=== PATIENT | male | born 1970 | race Caucasian/White ===

== ENCOUNTER → 2016-12-04 | Outpatient (CLI) | payer MEDICAID ==
--- NOTE | 2016-12-04 12:53 | DX ---
Chest, Two Views 1221 hours History: Bronchitis. Comparison: November 22, 2016 Findings: Cardiac silhouette is within normal range. Poor respiratory phase. No pneumonia, congesti ve heart failure, pleural effusion, or pneumothorax. Impression: 1. Poor Respiratory phase without definite focal pneumonia. 2. Consider followup with improved inspiration if clinically indicated.
== END ==
LOC: FIMAGING 11:59
PROVIDERS: ATTEND Family Medicine
DX: R05 Cough (principal); Z87.09 Personal history of other diseases of the respiratory system

== ENCOUNTER 2017-05-20 14:11 | Emergency (ER) | payer MEDICAID ==
[2017-05-20 14:23] VITALS: O2SAT 95
--- NOTE | 2017-05-20 16:26 | EDPHY ---
H & P Time Seen by Provider: 05/20/17 16:05 HPI/ROS: CHIEF COMPLAINT: right foot complaint HISTORY OF PRESENT ILLNESS: 46-year-old male presents emergency department complaining of right 4th toe pain. Patient was seen at [facility] and referred to a master cook. Patient reports he called the master cook and they could not see him for 1 month. He is concerned he should not wait this long. Patient reports a wound to right 4th toe x5 weeks, he was seen [facility] and told was a callus, they started shaving the callus and realized it was deeper than they realized so they referred him to master cook. The patient has taking 10 days worth of doxycycline. He denies fevers or chills, no drainage, no numbness or tingling in his foot. The patient reports he is prediabetic. He reports pain in this toe. Smoking Status: Current some day smoker Physical Exam: GEN: Awake, alert, oriented, no acute distress RESP: nl resp effort MSK: Full active flexion and extension of all toes on right foot, sensation intact to light touch, cap refill less than 2 seconds SKIN: 1 cm x 1 cm callus/ulcer to right lateral 4th toe between 4th and 5th toes. No drainage, no surrounding erythema. No swelling to toe Constitutional: Initial Vital Signs Temperature (C) 36.9 C 05/20/17 14:20 Heart Rate 90 05/20/17 14:20 Respiratory Rate 17 05/20/17 14:20 Blood Pressure 116/78 05/20/17 14:20 O2 Sat (%) 95 05/20/17 14:20 O2 Delivery Mode Room Air Allergies/Adverse Reactions: sulfamethoxazole [From ] Allergy (Verified 05/20/17 14:18) trimethoprim [From ] Allergy (Verified 05/20/17 14:18) Home Medications: Medication Instructions Recorded Doxycycline Hyclate 05/20/17 Hydrocodone/APAP 5/325 [[place] 1 tab PO Q4H PRN #7 tab 05/20/17 5/325] Lisinopril 05/20/17 MDM/Departure - MDM ED Course/Re-evaluation: 46-year-old nontoxic-appearing male with right foot ulcer presents requesting to see a master cook. Patient was referred to a master cook and they cannot see him for 1 month. Patient is foot appears stable, no signs of cellulitis or osteomyelitis. The patient has no swelling or erythema to this toe, no drainage , no fevers. Patient reports he is prediabetic. I have spoken with case management who will attempt to get him an appointment with a master cook sooner than 1 month. The patient is given strict return precautions for any worsening symptoms, new symptoms or concerns. - Depart Disposition: Home, Routine, Self-Care Clinical Impression: Toe ulcer, right Qualifiers: Non-pressure ulcer stage: unspecified non-pressure ulcer stage Qualified Code(s ): L97.519 - Non-pressure chronic ulcer of other part of right foot with unspecified severity Condition: Good Instructions: Diabetic Foot Ulcers (ED) Additional Instructions: Follow up with the master cook as discussed. Return to the emergency department for any fevers, drainage, redness to your toe, worsening symptoms or concerns. Take 600 mg of ibuprofen every 8 hours with food for 3-5 days. You can also take 650 mg of Tylenol every 8 hours. Take [place] as needed for severe pain. [place] does have Tylenol in it, do not take more than 3000 mg of Tylenol in 24 hours. You have an appointment at [facility] ([phone]) with Dr. Amelia Funes on 05/22/17 at 11:45a.m. Please arrive at 11:30am. They are located at [address] [place] [address]. Prescriptions: Hydrocodone/APAP 5/325 [[place] 5/325] 1 tab PO Q4H PRN #7 tab PRN Reason: Pain, Moderate Referrals: Ro Ornelas DO [Primary Care Provider] - As per Instructions
[2017-05-20 16:55] VITALS: BP 118/76; PULSE 81; RESP 16; TEMP 98.2
== END 2017-05-20 16:55 | disposition home or self-care (01) ==
DX: L97.519 Non-pressure chronic ulcer of other part of right foot with unspecified severity (principal); F17.200 Nicotine dependence, unspecified, uncomplicated

== ENCOUNTER → 2017-05-22 | Outpatient (CLI) | payer MEDICAID | LOC: BMCIMAGING 12:20 | PROVIDERS: ATTEND Podiatrist Foot & Ankle Surgery | DX: L97.519 Non-pressure chronic ulcer of other part of right foot with unspecified severity (principal) ==

== ENCOUNTER 2017-07-13 10:16 | Emergency (ER) | payer MEDICAID ==
[2017-07-13 10:22] VITALS: RESP 16; TEMP 98.6
--- NOTE | 2017-07-13 10:28 | EDPHY ---
H & P Time Seen by Provider: 07/13/17 10:18 HPI/ROS: CHIEF COMPLAINT: Left 4th and 5th toe pain post dropping a plate HISTORY OF PRESENT ILLNESS: 47-year-old male arrives via ambulance complaining of left 4th and 5th toe pain which occurred yesterday while he was at work and a heavy platter dropped onto the same area. He is able to bear weight albeit with pain. Positive ecchymotic discoloration. No paresthesia. Intact skin. No other injury. REVIEW OF SYSTEMS: A ten point review of systems was performed and is negative with the exception of the items mentioned in the HPI PAST MEDICAL & SURGICAL HISTORY: No pertinent medical or surgical history SOCIAL HISTORY: works at [employer]! PHYSICAL EXAM (Prior to examination, patient consented to physical exam, hands were washed and my usual and customary physical exam procedures followed) 1) GENERAL: Well-developed, well-nourished, alert and oriented. Appears to be in no acute distress. 2) HEAD: Normocephalic 3) HEENT: . Sclera anicteric. 4) NECK: no meningeal signs. 5) LUNGS: Breathing comfortably 6) HEART: No cyanotic discoloration 7) ABDOMEN: No guarding,, 8) MUSCULOSKELETAL: Left foot: Tender to palpation 4th and 5th toes with mild ecchymosis noted, no subungual hematoma, no shortening, no malrotation, remainder foot nontender. Soft compartments. 9) BACK: no visual abnormality. 10) SKIN: no laceration no rash . DIFFERENTIAL DIAGNOSIS: In no particular order including but not limited to fracture, sprain, dislocation Procedure: Splint A marixa tape and postop shoe splint was applied by ER collection systems technician. After application of the splint I returned and re-examined the patient. The splint was adequately immobilizing the joint and distal to the splint the patient's circulation and sensation were intact. Patient shows no signs of compartment syndrome. Was given orthopedic precautions. Smoking Status: Current some day smoker Constitutional: Initial Vital Signs Temperature (C) 37.0 C 07/13/17 10:20 Heart Rate 96 07/13/17 10:20 Respiratory Rate 16 07/13/17 10:20 Blood Pressure 141/87 H 07/13/17 10:20 O2 Sat (%) 96 07/13/17 10:20 O2 Delivery Mode Room Air Allergies/Adverse Reactions: sulfamethoxazole [From Septra] Allergy (Verified 05/20/17 14:18) trimethoprim [From Septra] Allergy (Verified 05/20/17 14:18) Home Medications: Medication Instructions Recorded Doxycycline Hyclate 05/20/17 Hydrocodone/APAP 5/325 [[place] 1 tab PO Q4H PRN #7 tab 05/20/17 5/325] Lisinopril 05/20/17 Ibuprofen [Motrin (*)] 600 mg PO Q6 #15 tab 07/13/17 MDM/Departure - [facility] ED Course/Re-evaluation: Re-evaluation with serial exams. Discussed his negative imaging results. Informed that occult fracture not ruled out. Recommend splinting, elevation. Recommend podiatry follow-up. Given ibuprofen NSAID precautions. - Depart Disposition: Home, Routine, Self-Care Clinical Impression: Toe pain, left Condition: Good Instructions: Crush Injury (ED) Additional Instructions: Return to the ER immediately if you experience discoloration, have worsening pain, numbness, tingling, or any other symptoms that concern you. If you received x-rays in the emergency department today, be advised, that ligamentous , tendon, muscular, and other non-bony injury cannot be fully ruled out. Try to keep your affected extremity elevated above the level of your chest, and keep cold packs on the affected area, for the next 48 hours. Prescriptions: Ibuprofen [Motrin (*)] 600 mg PO Q6 #15 tab Referrals: Jean Quezada DPM [Doctor of Podiatric Medicine] - 2-3 days, call for appt.
[2017-07-13] MEDS ORDERED: IBUPROFEN 200 MG TAB PO ONE (10:46)
[2017-07-13 11:17] VITALS: BP 135/78; PULSE 80; O2SAT 95
== END 2017-07-13 11:15 | disposition home or self-care (01) ==
LOC: EDUNIT#
DX: S99.922A Unspecified injury of left foot, initial encounter (principal); F17.200 Nicotine dependence, unspecified, uncomplicated; W20.8XXA Other cause of strike by thrown, projected or falling object, initial encounter; Y92.89 Other specified places as the place of occurrence of the external cause; Y99.0 Civilian activity done for income or pay; Y93.89 Activity, other specified
CPT/HCPCS: L3260

== ENCOUNTER 2017-09-07 07:47 | Emergency (ER) | payer MEDICAID ==
[2017-09-07 07:53] VITALS: BP 155/105; PULSE 89; RESP 16; TEMP 98.6; O2SAT 96
--- NOTE | 2017-09-07 07:54 | EDPHY ---
HPI/HX/ROS/PE/MDM Narrative: CHIEF COMPLAINT: HPI: The patient is a 47 y/o male complaining of REVIEW OF SYSTEMS: Aside from elements discussed in the HPI, a comprehensive 10-point review of systems was reviewed and is negative. PMH: Diabetes mellitus, hepatitis C, ADHD, bipolar, anxiety SOCIAL HISTORY: Lives in [place], single, works at a [employer] PHYSICAL EXAM: General:Patient is alert, in no acute distress. ENT:Eyes are normal to inspection. ENT inspection normal. Neck: Normal inspection. Full range of motion. Respiratory:No respiratory distress. Breath sounds normal bilaterally. Cardiovascular: Regular rate and rhythm. Strong peripheral pulses. Normal cap refill. Abdomen:The abdomen is nontender to palpation. There are no peritoneal signs. There are normal bowel sounds. Back: Normal to inspection. No tenderness to palpation. Skin: Normal color. No rash. Warm and dry. Extremities: Normal appearance. Full range of motion. Neuro: Oriented x3. Normal motor function. Normal sensory function. Portions of this note were transcribed by an ED scribe. I personally performed the history, physical exam, and medical decision making; and confirm the accuracy of the information in the transcribed note. General Initial Vital Signs: Initial Vital Signs Temperature (C) 37 C 09/07/17 07:51 Heart Rate 89 09/07/17 07:51 Respiratory Rate 16 09/07/17 07:51 Blood Pressure 155/105 H 09/07/17 07:51 O2 Sat (%) 96 09/07/17 07:51 O2 Delivery Mode Room Air Allergies/Adverse Reactions: sulfamethoxazole [From ] Allergy (Verified 09/07/17 07:50) trimethoprim [From Augra] Allergy (Verified 09/07/17 07:50) Home Medications: Medication Instructions Recorded Lisinopril 05/20/17 Lipitor 09/07/17 Departure - Departure Referrals: Ro Ornelas DO [Primary Care Provider] - As per Instructions Report Scribed for: Nima Pro Report Scribed by: Lacie Chakraborty Date of Report: 09/07/17 Time of Report: 07:53
--- NOTE | 2017-09-07 08:14 | EDPHY ---
H & P Stated Complaint: ? inf in 4th digit of 5 foot Time Seen by Provider: 09/07/17 08:11 HPI/ROS: HPI: This is a 47-year-old male who presents with Chief Complaint: Concerns for right 4th toe infection Location: Webspace between right 4th and 5th toes Quality: Concern for infection Duration: 1 week Signs and Symptoms: No redness, no warmth, no drainage, no decreased range of motion, no paresthesias, no swelling, no injury Timing: gradual onset Severity:mild Context: Patient has a history of prediabetes (dx type 2 DM while in skilled nursing 2 years ago but BS are now diet controlled), anxiety, PTSD who presents with concerns of recurrent of infection between the webspace of his right 4th and 5th toes. He denies any redness/warmth/drainage/paresthesias. There has been no injury or trauma. He was seen last year and this ER as well as followed [facility] for similar complaint. Chart review shows patient did not have an infection but callus that was later shaved off by Podiatry with local wound care. Modifying Factors: None Comment: ROS: see HPI Constitutional: No fever, no chills, no weight loss Eyes: No blurred vision Respiratory: No shortness of breath, no cough Cardiovascular: No chest pain Gastrointestinal: No nausea, no vomiting, no diarrhea Genitourinary: No dysuria Extremities: No myalgias Neurologic: No weakness, no numbness Skin: No rashes Hematologic: No bruising, no bleeding CONSTITUTIONAL: Extremely well-appearing adult white male, pressured speech, awake and alert, no obvious distress HEENT: Atraumatic and normocephalic, PERRL, EOMI. Tympanic membranes clear. Oropharynx clear, no exudate and moist pink mucosa. Airway patent. No lymphadenopathy. No meningismus. Cardiovascular: Normal S1/S2, regular rate, regular rhythm, without murmur rub or gallop. PULMONARY/CHEST: Symmetrical and nontender. Clear to auscultation bilaterally. Good air movement. No accessory muscle usage. ABDOMEN: Soft, nondistended, nontender, no rebound, no guarding, no peritoneal signs, no masses or organomegaly. No CVAT. EXTREMITIES: 2/2 pulses, web pace between right 4th and 5th digits; no erythema /warmth/drainage/maceration. no callus formation. light touch sensation intact. no deformities, no clubbing, no cyanosis or edema. NEUROLOGICAL: no focal neuro deficits. GCS 15. SKIN: Warm and dry, no erythema. no rash. Good capillary refill. Source: Patient Exam Limitations: No limitations - Personal History Current Tetanus/Diphtheria Vaccine: Yes - Medical/Surgical History Hx Asthma: No Hx Chronic Respiratory Disease: No Hx Diabetes: Yes Hx Cardiac Disease: No Hx Renal Disease: No Hx Cirrhosis: No Hx Alcoholism: No Hx HIV/AIDS: No Hx Splenectomy or Spleen Trauma: No Other PMH: ADHD, DM, Hep C, HTN, HLD. bipolar, anxiety. Surgical Hx: denies. Social Hx: unemployed, hx incarceration - Social History Smoking Status: Current some day smoker Constitutional: Initial Vital Signs Temperature (C) 37 C 09/07/17 07:51 Heart Rate 89 09/07/17 07:51 Respiratory Rate 16 09/07/17 07:51 Blood Pressure 155/105 H 09/07/17 07:51 O2 Sat (%) 96 09/07/17 07:51 O2 Delivery Mode Room Air Allergies/Adverse Reactions: sulfamethoxazole [From Augra] Allergy (Verified 09/07/17 07:50) trimethoprim [From Augra] Allergy (Verified 09/07/17 07:50) Home Medications: Medication Instructions Recorded Lisinopril 05/20/17 Lipitor 09/07/17 Tolnaftate [Tinactin Powder (*)] 1 an TP BID #1 btl 09/07/17 Medical Decision Making ED Course/Re-evaluation: right foot xray ordered [id number] Foot x-ray reviewed via PACs and shows no soft tissue swelling/fracture/ dislocation No signs of neurovascular compromise/tenting of skin/compartment syndrome/ extremities and joints examined above and below area of concern and are neurovascularly intact/cellulitis/abscess. Differential Diagnosis: Differential diagnosis includes cellulitis, osteomyelitis, callus formation, fracture, inflammation, candidal infection. Departure - Departure Disposition: Home, Routine, Self-Care Clinical Impression: Observation and evaluation for suspected conditions not found, Pre-diabetes Condition: Good Instructions: Foot Care for People with Diabetes (ED), Diabetic Peripheral Neuropathy (ED), Prediabetes (ED), Diabetes and Your Skin (ED) Additional Instructions: Today, you do not show signs of a bacterial skin infection, candidal infection or abscess formation. Inspect and wash with mild soap your feet and toes daily. Keep your feet moisturized with lotion but do not place lotion between her toes. Wear shoes that probably fit. Monitor for signs and symptoms of tinea pedis; if these occur use Tinactin powder twice daily p.r.n.. Follow-up with Podiatry in the next 1-2 weeks for re-evaluation. The x-rays obtained in the emergency department today demonstrate no evidence of an obvious fracture. Referrals: Ro Ornelas DO [Primary Care Provider] - As per Instructions Noah Guerrero DPM [Doctor of Podiatric Medicine] - As per Instructions Prescriptions: Tolnaftate [Tinactin Powder (*)] 1 an TP BID #1 btl
== END 2017-09-07 08:58 | disposition home or self-care (01) ==
DX: Z03.89 Encounter for observation for other suspected diseases and conditions ruled out (principal); E11.9 Type 2 diabetes mellitus without complications; I10 Essential (primary) hypertension; F17.200 Nicotine dependence, unspecified, uncomplicated

== ENCOUNTER 2018-05-08 16:06 | Emergency (ER) | payer MEDICAID ==
[2018-05-08] MEDS ORDERED: ACETAMINOPHEN 325 MG TAB PO ONE (17:27)
[2018-05-08] MEDS ORDERED: IBUPROFEN 600 MG TAB PO ONE (17:27)
[2018-05-08] MEDS ORDERED: predniSONE 20 MG TAB PO ONE (17:27)
--- NOTE | 2018-05-08 17:29 | EDPHY ---
H & P Smoking Status: Current some day smoker Time Seen by Provider: 05/08/18 17:25 HPI/ROS: Chief complaint: Insect bite History of present illness: 47-year-old male presents to the emergency department concerned he has insect bites. He has been sleeping under dirty mattress. He has noticed some bites on his arms over the last few days. They are itchy. He denies other associated signs or symptoms. He did get rid of the mattress and is cleaned all of the linens. (Cam Jiang) Physical Exam: General Appearance: Alert, nontoxic. Eyes: Pupils equal and round no injection. Respiratory: Chest is non tender, lungs are clear to auscultation. Cardiac: regular rate and rhythm Gastrointestinal: Abdomen is soft and non tender, no masses, bowel sounds normal. Musculoskeletal: Neck is supple and non tender. Extremities have full range of motion and are non tender. Skin: Multiple skin lesions to the arms consistent with bug bites. There a few set of 3 bites in a linear fashion. They do not appear to affect the interdigital web space. (Cam Jiang) Constitutional: Initial Vital Signs Temperature (C) 36.9 C 05/08/18 16:12 Heart Rate 99 05/08/18 16:12 Respiratory Rate 16 05/08/18 16:12 Blood Pressure 174/105 H 05/08/18 16:12 O2 Sat (%) 94 05/08/18 16:12 O2 Delivery Mode Room Air Allergies/Adverse Reactions: sulfamethoxazole [From ] Allergy (Verified 05/08/18 16:11) trimethoprim [From ] Allergy (Verified 05/08/18 16:11) Home Medications: Medication Instructions Recorded Lisinopril 05/20/17 Lipitor 09/07/17 Alprazolam 05/08/18 FOCALIN 05/08/18 Permethrin 5% [Elimite 5%] 60 an TP ONCE #1 cream 05/08/18 Ritalin 20mg (*) 05/08/18 diphenhydrAMINE [Benadryl 25 MG 25 mg PO TID #10 tab 05/08/18 (*)] predniSONE 20 mg PO DAILY 2 Days tablet 05/08/18 MDM/Departure - MDM Medications Given: Discontinued Medications Acetaminophen (Tylenol) 650 mg PO EDNOW ONE Stop: 06/08/18 17:28 Last Admin: 05/08/18 17:37 Dose: 650 mg Ibuprofen (Motrin) 600 mg PO EDNOW ONE Stop: 05/08/18 17:28 Last Admin: 05/08/18 17:37 Dose: 600 mg Prednisone (Prednisone) 20 mg PO EDNOW ONE Stop: 05/08/18 17:28 Last Admin: 05/08/18 17:38 Dose: 20 mg ED Course/Re-evaluation: Patient seen under the supervision of my secondary supervising physician Dr. Parker Ruvalcaba. Patient presents concerned he has bug bites. He is nontoxic. Vital signs are stable. This is likely bug bites. I will treat him with permethrin. He can use Benadryl for itching. In case this is contact versus allergic reaction I will give a short course of prednisone. Home care is discussed. Return precautions are given. (Cam Jiang) I did not see this patient while he was in the emergency department. However his care was discussed with the PA while the patient was in the department. I agree with treatment plan and management (Parker Ruvalcaba) Differential Diagnosis: Included but not limited to insect bites, contact dermatitis, allergic reaction (Cam Jiang) - Depart Disposition: Home, Routine, Self-Care Clinical Impression: Rash Condition: Good Instructions: Acute Rash (ED) Additional Instructions: Follow-up with a primary care doctor for recheck If symptoms worsen or new symptoms develop return to the emergency room for recheck Prescriptions: diphenhydrAMINE [Benadryl 25 MG (*)] 25 mg PO TID #10 tab Permethrin 5% [Elimite 5%] 60 an TP ONCE #1 cream predniSONE 20 mg PO DAILY 2 Days tablet Referrals: Ro Ornelas DO [Primary Care Provider] - As per Instructions
[2018-05-08 17:43] VITALS: BP 156/87
== END 2018-05-08 17:43 | disposition home or self-care (01) ==
LOC: EDUNIT#
DX: R21 Rash and other nonspecific skin eruption (principal); F17.200 Nicotine dependence, unspecified, uncomplicated
CPT/HCPCS: J7512